=== PATIENT | male | born 1975 | race Caucasian/White ===

== ENCOUNTER 2016-05-10 02:50 | Emergency (ER) | payer OTHER ==
[~2016-05-10] VITALS: Ht 182.9 cm; Wt 74.8 kg
[~2016-05-10 02:50] MED LIST: BUTA1CAP5 PO; LEVO50TA PO; LISD40CA2 PO; RABE20TA5 PO; SUMA50TA PO
--- NOTE | 2016-05-10 03:00 | NUR ---
PT STATES ABOUT 4 DAYS AGO WAS CHEWING A LOLIPOP AND HAD A PIECE OF LOLIPOP SCRATCH BACK OF THROAT
--- NOTE | 2016-05-10 03:03 | NUR ---
DR KWOK INTO EVAL PT
--- NOTE | 2016-05-10 03:09 | NUR ---
Patient discharged to home in stable conditon. Written and verbal after care instructions given. Patient verbalizes understanding of instructions. Pt walked out of ER unassisted with belongings and at side...
[2016-05-10] MEDS ORDERED: PENICILLIN V POTASSIUM 500 MG TABLET PO ONE (03:15)
[2016-05-10] MEDS ORDERED: PENICILLIN V POTASSIUM 500 MG TABLET ONE (03:17)
== END 2016-05-10 03:21 | disposition home or self-care (01) ==
LOC: ER 02:53
DX: K12.1 Other forms of stomatitis (principal); K21.9 Gastro-esophageal reflux disease without esophagitis; G43.909 Migraine, unspecified, not intractable, without status migrainosus; E03.9 Hypothyroidism, unspecified; F17.200 Nicotine dependence, unspecified, uncomplicated; Z79.82 Long term (current) use of aspirin
CPT/HCPCS: A4663

== ENCOUNTER 2016-07-16 05:31 | Emergency (ER) | payer OTHER ==
[~2016-07-16] VITALS: Ht 182.9 cm; Wt 77.1 kg
[2016-07-16] MEDS ORDERED: IV NORMAL SALINE 1000 ML BAG IV ONE (06:30)
[2016-07-16] MEDS ORDERED: KETOROLAC TROMETHAMINE 15 MG INJ IV ONE (06:30)
[2016-07-16] MEDS ORDERED: METOCLOPRAMIDE HCL 10 MG/2 ML VIAL IV ONE (06:30)
[2016-07-16] MEDS ORDERED: METOCLOPRAMIDE HCL 10 MG/2 ML VIAL ONE (06:34)
[2016-07-16] MEDS ORDERED: KETOROLAC TROMETHAMINE 15 MG INJ ONE (06:34)
[2016-07-16 06:48] LABS: BILIRUBIN,DIRECT 0.1 mg/dL (0.0-0.2); BILIRUBIN,TOTAL 0.2 mg/dL (0.2-1.0); CREATININE 1.3 mg/dL (0.6-1.3); POTASSIUM 4.6 mmol/L (3.5-5.1)
[2016-07-16 08:19] LABS: BASOPHILS # (AUTO) 0.1 K/uL (0.0-8.0); BASOPHILS % (AUTO) 1.3 % (0.0-2.0); EOSINOPHILS # (AUTO) 0.2 K/uL (0.0-0.7); HEMATOCRIT 40.3 % (40-50); LYMPHOCYTES # (AUTO) 0.9 K/UL (0.8-4.8); LYMPHOCYTES % (AUTO) 11.8 % (20.5-51.5); MEAN CORPUSCULAR HGB CONC 35 g/dL (32.0-37.0); MEAN CORPUSCULAR VOLUME 97.9 FL (82.0-92.0); MONOCYTES # (AUTO) 0.8 K/UL (0.1-1.30); MONOCYTES % (AUTO) 9.4 % (0.0-11.0); NEUTROPHILS % (AUTO) 75.5 % (38.5-71.5); PLATELET COUNT (AUTO) 227 K/UL (150-450); RED BLOOD CELL COUNT(AUTO) 4.12 MIL/UL (4.7-6.1)
--- NOTE | 2016-07-16 09:10 | NUR ---
Gave pt RX and d/c instructions, verbalized understanding.
== END 2016-07-16 09:20 | disposition home or self-care (01) ==
LOC: ER 05:33
DX: K52.9 Noninfective gastroenteritis and colitis, unspecified (principal); G43.909 Migraine, unspecified, not intractable, without status migrainosus; K21.9 Gastro-esophageal reflux disease without esophagitis; E03.9 Hypothyroidism, unspecified; F17.200 Nicotine dependence, unspecified, uncomplicated
CPT/HCPCS: 36415; 74176; 80048; 80076; 83690; 85025; 96361; 96374; 96375; 99285; A4663; J1885; J2765; J7030 ×2